=== PATIENT | male | born 1960 | race American Indian/Alaskan Native ===

== ENCOUNTER 2017-06-28 15:46 | Outpatient (CLI) | payer BC ==
--- NOTE | 2017-06-28 23:32 | XRay Report ---
FINAL REPORT EXAM: X-ray hand bilaterally, 6 views. HISTORY: Thumb deformity TECHNIQUE: 6 views of bilateral hands: AP, oblique and lateral projections. PRIORS: None FINDINGS: Right hand: There is no acute fracture or dislocation. Severe degenerative changes at the 1st metacarpophalangeal joint are present with severe joint space narrowing and marginal osteophytes. There is additional mild volar subluxation of the proximal phalanx relative to the metacarpal. Mild interphalangeal joint degenerative changes are additionally present. The carpal arcs are maintained in the intercarpal spaces are preserved. There is no chondrocalcinosis. Left hand: Moderate degenerative changes of the 1st metacarpophalangeal joint with bulky marginal osteophytes and mild volar subluxation of the proximal phalanx relative to the metacarpal. Additional mild interphalangeal joint degenerative changes. Corticated ossicle is present adjacent to the ulnar styloid which may be secondary to chronic trauma or developmental ossification center. The carpal arcs are maintained and the intercarpal spaces are preserved. No chondrocalcinosis. IMPRESSION: 1. No acute osseous abnormality. 2. 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 Radiographic evidence of inflammatory or metabolic arthropathy.
== END 2017-06-28 15:47 | disposition home or self-care (01) ==
LOC: SPVIMAG 15:46
DX: M18.9 Osteoarthritis of first carpometacarpal joint, unspecified (principal); M19.041 Primary osteoarthritis, right hand; M19.042 Primary osteoarthritis, left hand